=== PATIENT | male | born 1970 ===

== ENCOUNTER → 2021-02-17 09:37 | Outpatient (BNVA) | payer MEDICARE, MEDICAID, SELFPAY | PROVIDERS: PCP Family Medicine; Referring Provider Registered Nurse; Visit Provider Psychiatry & Neurology Neurology | DX: G71.11 Myotonic muscular dystrophy (principal) | CPT/HCPCS: 99205 ==

== ENCOUNTER → 2021-04-26 14:37 | Outpatient (BNVA) | payer MEDICARE, MEDICAID, SELFPAY | PROVIDERS: PCP Family Medicine; Referring Provider Family Medicine; Visit Provider Psychiatry & Neurology Neurology | DX: G71.11 Myotonic muscular dystrophy (principal); J44.9 Chronic obstructive pulmonary disease, unspecified | CPT/HCPCS: 99214 ==

== ENCOUNTER → 2021-09-05 09:20 | Outpatient (BNVA) | payer MEDICARE, MEDICAID, SELFPAY | PROVIDERS: PCP Family Medicine; Referring Provider Family Medicine; Visit Provider Psychiatry & Neurology Neurology | DX: G71.11 Myotonic muscular dystrophy (principal); J44.9 Chronic obstructive pulmonary disease, unspecified | CPT/HCPCS: 99214 ==

== ENCOUNTER → 2021-12-05 08:19 | Outpatient (BNVA) | payer MEDICARE, MEDICAID, SELFPAY | PROVIDERS: PCP Family Medicine; Referring Provider Family Medicine; Visit Provider Psychiatry & Neurology Neurology | DX: G71.11 Myotonic muscular dystrophy (principal) | CPT/HCPCS: 99443 ==

== ENCOUNTER → 2022-03-22 10:18 | Outpatient (BNVA) | payer MEDICARE, MEDICAID, SELFPAY | PROVIDERS: PCP Family Medicine; Referring Provider Family Medicine; Visit Provider Psychiatry & Neurology Neurology | DX: J44.9 Chronic obstructive pulmonary disease, unspecified (principal); G71.11 Myotonic muscular dystrophy | CPT/HCPCS: 99214 ==